=== PATIENT | female | born 1995 | race Two or more races ===

== ENCOUNTER 2025-01-12 14:39 | Emergency (ER) | payer MEDICAID, SELFPAY ==
[2025-01-12 15:01] VITALS: BP 117/74; PULSE 91; RESP 16; TEMP 36.9; O2SAT 99; BMI 30.9
--- NOTE | 2025-01-12 15:14 | XR_ITS ---
Examination: Complete OB ultrasound, less than 14 weeks, transabdominal Date and time of exam: January 12, 2025 5, 1540 hours INDICATIONS: Vaginal bleeding beginning 2 days ago Technique: Obstetrical ultrasound images less than 14 weeks performed via transabdominal imaging Findings: Uterus 8.2 cm with intrauterine gestational sac 0.9 cm corresponding to 5 weeks 5 day gestational age No pole, no cardiac activity Right ovary 2.8 cm arterial flow Left ovary 2.9 cm arterial flow 15 mm cyst IMPRESSION: Intrauterine gestational sac corresponding to 5 weeks 5 day gestational age, no pole, no cardiac activity, recommend short-term follow-up pelvic sonography to document viability
--- NOTE | 2025-01-12 15:15 | EDNOTE_ITS ---
ED OB Contraction Preg RMI/HPI General Chief complaint: Vaginal Bleeding Stated complaint: 6 weeks OB, , vaginal bleeding today Time Seen by Provider: 01/12/25 14:41 Arrival date/time: 01/12/25 14:39 Mode of arrival: ambulatory Limitations: no limitations RME / HPI RME / HPI Narrative: 29-year-old female currently approximately 6 weeks presents for evaluation of vaginal bleeding x 2 hours. Patient endorses intermittent, mild suprapubic cramping. She describes blood as small amounts of brown flecks. Patient reports that she was recently seen by her primary care provider who performed a blood test which showed intrauterine . She states that she is currently taking azithromycin for UTI and gonorrhea infection. Patient denies fever, dysuria, chills, weakness, chest pain, palpitations.P:2 A:0 Complaint: vaginal bleeding Onset (ago): hour(s) Consistency: intermittent Quality: cramping Relieving factors: none Exacerbating factors: none Associated symptoms: denies other symptoms Vaginal bleeding: light : yes OB History - Current : no complications care: followed by OB Related Data Home Medications ?Medication ?Instructions ?Recorded ?Confirmed prenat.vits,tomy,[id number] 1 tab PO QDAY 11/09/18 Allergies Allergy/AdvReac Type Severity Reaction Status Date / Time No Known Allergies Allergy Verified 01/12/25 14:44 Review of Systems Constitutional Constitutional: Denies body ache(s), Denies chills, Denies fever(s) and Denies headache(s) Eyes Eyes: Denies blurry vision and Denies change in vision ENT Ears, Nose, Mouth, and Throat: Denies facial pain and Denies headache(s) Cardiovascular Cardiovascular: Denies chest pain, Denies dyspnea and Denies leg edema Respiratory Respiratory: Denies cough and Denies dyspnea Gastrointestinal Gastrointestinal: Reports abdominal pain, Denies nausea and Denies vomiting Genitourinary Genitourinary: Reports abnormal vaginal bleeding, Denies dysuria and Denies vaginal pruritus Musculoskeletal Musculoskeletal: Denies abnormal gait, Denies arthralgias and Denies numbness Integumentary/Breasts Skin/Breast: Denies lesions and Denies rash Neurologic Neurologic: Denies abnormal gait, Denies headache(s) and Denies numbness Past Medical History Past Medical History NEUROLOGIC: Negative Neurological Disorders or Seizures CARDIAC: Negative Cardiac Disorders or Congestive Heart Failure RESPIRATORY: Negative Chronic Obstructive Pulmonary Disease (COPD) GASTROINTESTINAL: Negative Gastrointestinal Disorders, Hepatitis or Colorectal Cancer GENITOURINARY: Negative Genitourinary Disorders, Renal Disease or Prostate Cancer REPRODUCTIVE: Negative Breast Cancer or Testicular Cancer MUSCULOSKELETAL: Negative Musculoskeletal Disorders or Bone Cancer ENDOCRINE: Negative Endocrine Disorders, Diabetes Mellitus Type 1 or Diabetes Mellitus Type 2 HEMATOLOGIC: Negative Blood Disorders OTHER HISTORY: Negative Hospitalization, Autoimmune Disease, Down Syndrome, Developmental Delay, Shingles, Falls, Blood Transfusions, Blood Transfusion Reaction, Anesthesia Reactions, Organ Transplant, Chemotherapy, Radiation Therapy, Hyperbaric Therapy, MRSA, VRSA, Vancomycin-Resistant Enterococci, Human Immunodeficiency Virus (HIV), Chicken Pox, Measles, Mumps, Rubella ([place] Measles), Pertussis, Clostridium Difficile, Cancer, Breast Cancer, Cervical Cancer, Colorectal Cancer, Lung Cancer, Ovarian Cancer, Prostate Cancer or Testicular Cancer Family History FAMILY HISTORY: Negative Family Psychiatric Problems, Family Respiratory Disorders, Family Cardiac Disorders, Family Gastrointestinal Problems, Family Cancer, Family Surgery or Family Anesthesia Reaction Surgical History SURGICAL: Negative Section or Organ Transplant Social History SMOKING STATUS: Never smoker ED Exam General Limitations: Present no limitations General appearance: Present alert and in no apparent distress Head Head exam: Present atraumatic and normocephalic Eye Eye exam: Present normal appearance and EOMI ENT ENT exam: Present normal oropharynx and mucous membranes moist Neck Neck exam: Present normal inspection and full ROM Chest Chest inspection: Present normal inspection and symmetric chest wall rise Respiratory Respiratory exam: Present normal lung sounds bilaterally; Absent respiratory distress or wheezes Cardiovascular Cardiovascular exam: Present regular rate and +S1 Abdominal Exam Abdominal exam: Present soft; Absent distention, tenderness, guarding, rebound or rigidity Extremities Exam Extremities exam: Present normal inspection and full ROM Back Exam Back exam: Present normal inspection and full ROM; Absent CVA tenderness (R) or CVA tenderness (L) Neurological Exam Neurological exam: Present alert and normal gait Psychiatric Psychiatric exam: Present normal affect Skin Skin exam: Present warm and dry Course Quality Measures none Orders Category Date Time Status US OB <= 14 weeks fetus Stat Exams 01/12/25 15:14 Completed ABO/RH Type Stat Lab 01/12/25 15:23 Completed Beta HCG,Quantitative Stat Lab 01/12/25 15:23 Completed CBC Stat Lab 01/12/25 15:23 Completed CMP [Comprehensive Metabolic Panel] Stat Lab 01/12/25 15:23 Completed UA [Urinalysis] Stat Lab 01/12/25 15:59 Completed Vital Signs Vital signs: Vital Signs Temperature 98.4 F 01/12/25 15:01 Pulse Rate 91 01/12/25 15:01 Respiratory Rate 16 01/12/25 15:01 Blood Pressure 117/74 01/12/25 15:01 Pulse Oximetry (%) 99 01/12/25 15:01 Oxygen Delivery Method Room Air 01/12/25 15:01 Pulse ox 99% on room air, within normal limits. Vaginal Bleeding MDM Narrative MDM Narrative: 29-year-old female presented for vaginal bleeding in the setting of approximately 6 weeks. Vital signs reassuring. Ultrasound showed intrauterine with no detectable heartbeat at this time. Less concern for ectopic at this time. No anemia requiring blood transfusion at this time. No leukocytosis and patient afebrile therefore low concern for septic miscarriage. Patient has a UTI for which she is currently on antibiotics. Ultimately the patient was discharged home with plan to follow-up with OB within the next week for repeat ultrasound to detect for viable given no heartbeat was recorded at this time. I discussed these results with the patient and gave her opportunity to ask questions. She expressed understanding and agreement with this plan. Strict report return precautions were provided. Patient data External records reviewed:: [facility] previous records Clinical information provided by:: patient Social determinants that could affect healthcare access:: none Patient has the following chronic illnesses:: None reported. How is presenting disease/condition affected by chronic disease/condition?: no chronic disease Evaluation data The following diagnostics were reviewed and interpreted by me:: lab results and radiology exam(s) Lab and/or radiology exams considered but not ordered:: Workup ordered. Interpretation Summary: Ultrasound significant for intrauterine measuring approximately 5 weeks and 5 days with no recorded heartbeat. Beta-hCG within expected range for duration of . Patient not anemic. No gross electrolyte abnormality or evidence of endorgan damage. UA with sign of infection for which patient is currently on antibiotic. Medications / Prescriptions Medications or Prescriptions considered but not ordered:: Considered not ordered. Medication administrations:: Considered not ordered. Consultations Consultation(s) initiated? (list below): No Diagnosis Vaginal Bleeding Differential Diagnosis: missed , threatened , incomplete , ectopic without intrauterine and vaginal bleeding Most likely diagnosis given after review of the tests above:: Threatened . Admission Indicated Admission indicated?: not indicated Admission Request Was there a request for admission?: No Disposition Plan Disposition Plan: Discharge Discharge Attestation Discharge Attestation: The patient and all family members were given an opportunity to ask questions and understood the discharge instructions. Discharge instructions specifically effects, indications for sooner follow up or return to the emergency department, and the expected course of current diagnosis. Patient condition: Stable Discharge Plan Plan Patient Disposition: HOME (Self Care) Discharge Disposition comment: stable Prescriptions/Referrals Prescriptions/Med Rec: No Action prenat.vits,tomy,[id number] tablet 1 tab PO QDAY Referrals: No Primary/Family,Physician [Primary Care Provider] - In 1 week Problem List Clinical Impression: Vaginal bleeding, Threatened in first trimester Impression comment: [facility] for repeat ultrasound to check for viability. Continue to take azithromycin as prescribed for UTI. Take Tylenol as needed for abdominal pain. Return to the ED if your symptoms worsen or change. Patient/Caregiver Discharge Instructions Education Materials: Understanding Miscarriage ... Print Language: Slovak Stand Alone Forms: Jenifer Award Info., Patient Portal Info Letter PA/SHAREPOINT NET DEVELOPER Supervising Physician PA/SHAREPOINT NET DEVELOPER Supervising Physician: Dr. Goel
[2025-01-12 15:39] LABS: Basophils # (Auto) 0.1 Thou/mm3 (0.0-0.2); Basophils % (Auto) 1 % (0-2.5); Eosinophils # (Auto) 0.2 Thou/mm3 (0.0-0.5); Eosinophils % (Auto) 3 % (0-10); Hematocrit 36.5 % (36.0-46.0); Hemoglobin 13.2 g/dL (12.0-16.0); Immature Granulocytes % (Auto) 0 % (0-0); Immature Granulocytes Auto 0.02 Thou/mm3 (0.00-0.00); Lymphocytes # (Auto) 2.5 Thou/mm3 (1.0-4.8); Lymphocytes % (Auto) 37 % (10-50); Mean Corpuscular HGB Conc 36.2 g/dl (31.0-37.0); Mean Corpuscular Hemoglobin 32.4 pg (25.0-35.0); Mean Corpuscular Volume 90 fL (80-100); Monocytes # (Auto) 0.4 Thou/mm3 (0.0-0.8); Monocytes % (Auto) 5 % (0-12); Neutrophils # (Auto) 3.7 Thou/mm3 (1.8-7.7); Neutrophils % (Auto) 55 % (37-80); Nucleated Red Blood Cell % 0 /100 WBC (0); Platelet Count 373 Thou/mm3 (140-440); RDW Standard Deviation 40.5 fL (36.4-46.3); Red Blood Count 4.08 Miln/mm3 (4.00-5.20); White Blood Count 6.8 Thou/mm3 (3.6-11.0)
[2025-01-12 16:06] LABS: Collection Type, Urine Clean Catch
[2025-01-12 16:12] LABS: Bacteria,Urine 1+; Bilirubin,Urine Negative (Negative); Blood,Urine 3+ (Negative); Color,Urine Yellow (Lt Yel-Yel); Glucose, Urine Negative (Negative); Ketones,Urine Negative (Negative); Leukocyte Esterase,Urine Positive (Negative); Nitrite,Urine Negative (Negative); PH,Urine 6.5 (5.0-7.0); Protein,Urine Trace (Neg - Trace); RBC,Urine 11 /hpf (0-3); Specific Gravity,Urine 1.022 (1.001-1.035); Squamous Epithelial Cell,Urine 5 /hpf (0-5); Urobilinogen,Urine Negative mg/dL (0.0-1.0); WBC,Urine 23 /hpf (0-5)
[2025-01-12 16:12] LABS: Alanine Aminotransferase 21 U/L (10-49); Albumin, Serum 4.4 gm/dL (3.5-5.0); Alkaline Phosphatase 74 U/L (46-116); Anion Gap 7 (7-16); Aspartate Amino Transferase 19 U/L (0-34); BUN/Creatinine Ratio 6 Ratio (12-20); Beta HCG,Quantitative 1460 mIU/mL (<5.0); Bilirubin,Total 0.3 mg/dL (0.3-1.2); Blood Urea Nitrogen < 5 mg/dL (9-23); Calcium 9.3 mg/dL (8.3-10.6); Calcium (Corrected) 9.3 mg/dL (8.5-10.1); Carbon Dioxide 24.8 mMol/L (20.0-31.0); Chloride 106 mMol/L (98-107); Creatinine (Component) 0.8 mg/dL (0.6-1.3); Estimated Creatinine Clearance 89.5 mL/min (>60); Globulin 2.2 gm/dL (2.3-3.5); Glucose 91 mg/dL (74-106); Osmolality,Calculated 272 (275-295); Potassium 3.9 mMol/L (3.4-5.1); Sodium 138 mMol/L (136-145); Total Protein 6.6 gm/dL (5.7-8.2); eGFR > 60 See Note
[2025-01-12 16:18] LABS: Clarity,Urine Hazy (Clear/Hazy)
== END 2025-01-12 17:05 | disposition home or self-care (01) ==
PROVIDERS: Physician Assistant
DX: O20.0 Threatened abortion (principal); Z3A.01 Less than 8 weeks gestation of pregnancy; O23.41 Unspecified infection of urinary tract in pregnancy, first trimester; O98.211 Gonorrhea complicating pregnancy, first trimester; N39.0 Urinary tract infection, site not specified
CPT/HCPCS: 36415; 76801; 80053; 81001; 84702; 85025; 86900; 86901; 99284

== ENCOUNTER 2025-01-14 18:01 | Emergency (ER) | payer MEDICAID, SELFPAY ==
[2025-01-14 18:11] VITALS: PULSE 89; RESP 18; O2SAT 98; BMI 31.3
[2025-01-14 18:34] VITALS: BP 113/61; PULSE 78; RESP 16; O2SAT 99
--- NOTE | 2025-01-14 18:55 | EDNOTE_ITS ---
ED OB Contraction Preg RMI/HPI General Chief complaint: General Adult/Misc Complain Stated complaint: MISCARRIED Time Seen by Provider: 01/14/25 18:46 Source: patient, EMS, RN notes reviewed and old records reviewed Arrival date/time: 01/14/25 18:01 Mode of arrival: wheelchair Limitations: no limitations RME / HPI RME / HPI Narrative: 29yof approx 6 weeks gestation presents to ED for vaginal bleeding. Patient reports light bleeding the past 2 days that became heavier this morning. She reports she passed a large blood clot this afternoon. Vaginal bleeding now only present with wiping. Reports mild pelvic cramping. No fever, vomiting or urinary symptoms reported. 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 Patient was evalated in ED for same symptoms 01/12. HCG was 1460 at that time. US showed IUP meauring 5 weeks/5 days without pole or cardiac activity. Related Data Home Medications ?Medication ?Instructions ?Recorded ?Confirmed prenat.vits,tomy,[id number] 1 tab PO QDAY 11/09/18 Allergies Allergy/AdvReac Type Severity Reaction Status Date / Time No Known Allergies Allergy Verified 01/12/25 14:44 Review of Systems Review of Systems Systems Reviewed: All systems reviewed, normal except as documented Constitutional Constitutional: Denies chills and Denies fever(s) Genitourinary Genitourinary: Reports abnormal vaginal bleeding and Reports pelvic pain Past Medical History Surgical History SURGICAL: Positive Section Past Medical History Comments PMH COMMENT: Obesity ED Exam General Limitations: Present no limitations General appearance: Present alert and in no apparent distress Head Head exam: Present atraumatic and normocephalic Eye Eye exam: Present normal appearance, PERRL and EOMI ENT ENT exam: Present normal exam and mucous membranes moist Neck Neck exam: Present normal inspection and full ROM Chest Chest inspection: Present normal inspection and symmetric chest wall rise Respiratory Respiratory exam: Present normal lung sounds bilaterally; Absent respiratory distress Cardiovascular Cardiovascular exam: Present regular rate and normal rhythm Abdominal Exam Abdominal exam: Present soft; Absent distention, tenderness, guarding or rebound Extremities Exam Extremities exam: Present normal inspection and full ROM Neurological Exam Neurological exam: Present alert and oriented X3 Psychiatric Psychiatric exam: Present normal affect and normal mood Skin Skin exam: Present warm, dry, intact and normal color Course Quality Measures none Orders Category Date Time Status Beta HCG,Quantitative Stat Lab 01/14/25 19:14 Completed CBC Stat Lab 01/14/25 19:14 Completed Vital Signs Vital signs: Vital Signs Pulse Rate 78 01/14/25 18:34 Respiratory Rate 16 01/14/25 18:34 Blood Pressure 113/61 01/14/25 18:34 Pulse Oximetry (%) 99 01/14/25 18:34 Oxygen Delivery Method Room Air 01/14/25 18:34 Vaginal Bleeding MDM Narrative MDM Narrative: 29yof approx 6 weeks gestation presents to ED for vaginal bleeding. P [place] reports light bleeding the past 2 days that became heavier this morning. She reports she passed a large blood clot this afternoon. Vaginal bleeding now only present with wiping. Reports mild pelvic cramping. No fever, vomiting or urinary symptoms reported. 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 Patient was evalated in ED for same symptoms 01/12. HCG was 1460 at that time. US showed IUP meauring 5 weeks/5 days without pole or cardiac activity. Patient updated on labs. Decreasd hcg with vaginal bleeding c/w miscarriage. Patient is hemodynamically stable. Encouraged close ob follow up. Stable for dc, RTED precautions given. Patient data External records reviewed:: [facility] previous records (04/06/2019 ED visit for delivery) Clinical information provided by:: patient Social determinants that could affect healthcare access:: other (specify) (Poor access to healthcare) Patient has the following chronic illnesses:: Obesity How is presenting disease/condition affected by chronic disease/condition?: uneffected by Evaluation data The following diagnostics were reviewed and interpreted by me:: lab results Lab and/or radiology exams considered but not ordered:: OB ultrasound: Reviewed imaging from 01/12 ED visit. Imaging showed IUP measuring 5 weeks, 5 days without pole or cardiac activity Interpretation Summary: hgb 13.0 hcg 830 (decreased from 1460 on 01/12) Medications / Prescriptions Medications or Prescriptions considered but not ordered:: No antibiotics recommended at this time Medication administrations:: None Consultations Consultation(s) initiated? (list below): No Diagnosis Vaginal Bleeding Differential Diagnosis: missed , threatened , dysfunctional uterine bleeding, incomplete and ectopic without intrauterine Most likely diagnosis given after review of the tests above:: Miscarriage, vaginal bleeding Admission Indicated Admission indicated?: not indicated Admission Request Was there a request for admission?: No Disposition Plan Disposition Plan: Discharge Discharge Attestation Discharge Attestation: The patient and all family members were given an opportunity to ask questions and understood the discharge instructions. Discharge instructions specifically effects, indications for sooner follow up or return to the emergency department, and the expected course of current diagnosis. Patient condition: Stable Discharge Plan Plan Patient Disposition: HOME (Self Care) Patient condition on transfer: Stable Prescriptions/Referrals Prescriptions/Med Rec: No Action prenat.vits,tomy,[id number] tablet 1 tab PO QDAY Referrals: Emil Francois MD [Primary Care Provider] - In 1 week Problem List Clinical Impression: Miscarriage, Vaginal bleeding Patient/Caregiver Discharge Instructions Education Materials: Understanding Miscarriage ... Print Language: Cambodian Stand Alone Forms: Jenifer Award Info., Patient Portal Info Letter PA/LATHE SETUP OPERATOR Supervising Physician PA/LATHE SETUP OPERATOR Supervising Physician: Iza
[2025-01-14 19:24] LABS: Basophils % (Auto) 1 % (0-2.5); Eosinophils # (Auto) 0.2 Thou/mm3 (0.0-0.5); Eosinophils % (Auto) 2 % (0-10); Hematocrit 36.1 % (36.0-46.0); Immature Granulocytes % (Auto) 0 % (0-0); Immature Granulocytes Auto 0.01 Thou/mm3 (0.00-0.00); Lymphocytes # (Auto) 2.7 Thou/mm3 (1.0-4.8); Lymphocytes % (Auto) 42 % (10-50); Mean Corpuscular Volume 89 fL (80-100); Monocytes # (Auto) 0.4 Thou/mm3 (0.0-0.8); Monocytes % (Auto) 7 % (0-12); Neutrophils % (Auto) 48 % (37-80); Nucleated Red Blood Cell % 0 /100 WBC (0); Platelet Count 321 Thou/mm3 (140-440); RDW Standard Deviation 40.1 fL (36.4-46.3); Red Blood Count 4.06 Miln/mm3 (4.00-5.20); White Blood Count 6.3 Thou/mm3 (3.6-11.0)
[2025-01-14 19:52] LABS: Beta HCG,Quantitative 830 mIU/mL (<5.0)
[2025-01-14 20:04] VITALS: BP 108/57; PULSE 67; RESP 16; O2SAT 100
== END 2025-01-14 20:11 | disposition home or self-care (01) ==
PROVIDERS: Physician Assistant; Emergency Provider Emergency Medicine; PCP Family Medicine
DX: O03.9 Complete or unspecified spontaneous abortion without complication (principal)
CPT/HCPCS: 36415; 84702; 85025; 99283